=== PATIENT | male | born 1995 | race American Indian/Alaskan Native ===

== ENCOUNTER 2018-10-15 13:08 | Outpatient (CLI) | payer OTHER ==
[2018-10-15] MEDS ORDERED: PROVENTIL IH ONE (13:53)
== END 2018-10-15 13:09 | disposition home or self-care (01) ==
LOC: PF 13:08
PROVIDERS: ATTEND Internal Medicine
DX: I26.99 Other pulmonary embolism without acute cor pulmonale (principal)
CPT/HCPCS: 94060; 94640